=== PATIENT | female | born 1960 | race Caucasian/White ===

== ENCOUNTER → 2021-02-02 | Outpatient (REF) ==
--- NOTE | 2021-02-02 14:16 | REP ---
INDICATION: MALIGNANT NEOPLASM OF PROSTATE. COMPARISON: None. TECHNIQUE: AP, lateral, open mouth views FINDINGS: Moderate degenerative spondylosis includes endplate sclerosis, marginal spurring and disc space narrowing primarily involving C5-6 and C4-5. Alignment is maintained. No acute fracture/compression injury or subluxation. Spinous processes are intact. Open mouth view demonstrates normal C1-C2 articulation and odontoid process. IMPRESSION: Moderate degenerative spondylosis primarily involving C4-5 and C5-6. <Electronically signed by Al Ortiz > 02/02/21 [id number]
--- NOTE | 2021-02-02 14:20 | REP ---
INDICATION: MALIGNANT NEOPLASM OF PROSTATE COMPARISON: None. TECHNIQUE: AP, lateral, coned-down views of the lumbar spine. FINDINGS: Age-related osteopenia and advanced multilevel degenerative changes include endplate sclerosis, osteophytosis, disc space narrowing and facet hypertrophy. Findings are most pronounced at the L4-5 and L5-S1 levels. Chronic subluxation at the L5-S1 level cannot be excluded and evaluation is limited due to overlying opacities. No obvious acute fracture/compression injury. IMPRESSION: 1. Osteopenia and advanced degenerative changes. 2. Cannot exclude chronic anterolisthesis at the L5-S1 level. 3. Limited evaluation primarily involving lower lumbar and sacral spine due to overlying opacities. Consider re-evaluation of the patient remains symptomatic. <Electronically signed by Al Ortiz > 02/02/21 [id number]
== END ==
LOC: M PLAIMG 13:28
PROVIDERS: ATTEND Internal Medicine
DX: M54.9 Dorsalgia, unspecified (principal)